=== PATIENT | male | born 1985 | race Caucasian/White ===

== ENCOUNTER 2021-06-18 15:48 | Outpatient (CLI) | payer MEDICARE, MEDICAID, SELFPAY ==
--- NOTE | 2021-06-18 16:09 | XR_ITS ---
WS: [id number] XR abdomen 1V* [id number] REASON FOR EXAM: PELVIC PAIN/ABDOMINAL PAIN, HX OF OBSTRUCTION FINDINGS: Peritoneal dialysis catheter overlying the mid abdomen with complex redundant coiling in the right lo wer quadrant. Moderately gas-distended loops of small bowel in the mid lower abdomen with mildly thickened fold pat tern. There is gas in the right and transverse colons. There is a lucency in the right upper quadrant between the liver and right kidney that appears artifa ctual. Potentially this could represent miniscule amount trapped free air related to peritoneal dialy sis. XR/XR abdomen 1V* [id number] IMPRESSION: Bowel gas pattern suggests partial small bowel obstruction.
== END 2021-06-18 15:49 | disposition home or self-care (01) ==
PROVIDERS: PCP Nurse Practitioner Family; Visit Provider Internal Medicine Nephrology
DX: R10.9 Unspecified abdominal pain (principal); R10.2 Pelvic and perineal pain
CPT/HCPCS: 74018

== ENCOUNTER 2022-09-10 16:11 | Emergency (ER) | payer MEDICARE, MEDICAID, SELFPAY ==
[2022-09-10] VITALS (7 sets, daily range): BP systolic 92–120; BP diastolic 62–76; PULSE 94–130; RESP 18; TEMP 37; O2SAT 91–96; BMI 18.1
--- NOTE | 2022-09-10 16:15 | ECG_ITS ---
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 Measurements Intervals [place] Rate: 128 P: 0 CO: 0 QRS: 57 QRSD: 86 T: 151 QT: 297 QTc: 434 Interpretive Statements ATRIAL FIBRILLATION WITH RAPID VENTRICULAR RESPONSE POSSIBLE RIGHT VENTRICULAR CONDUCTION DELAY [RSR (QR) IN V1/V2] ST DEVIATION AND MODERATE T-WAVE ABNORMALITY, CONSIDER LATERAL ISCHEMIA [-0.1+ mV T-WAVE IN I/aVL/V5/V6] No previous ECG available for comparison Electronically Signed On 09-10-2022 19:26:00 CDT by Zari Solis M.D. [email or web address]/store/NU/[id number] johnson
--- NOTE | 2022-09-10 16:25 | ED_ITS ---
HPI - Arrhythmia/Palpitations General: Chief Complaint: Arrhythmia/Palpitations Stated Complaint: afib rvr Time Seen by Provider: 09/10/22 16:13 History of Present Illness: Patient presents to the ER with tachycardia. Patient was finishing up dialysis and a dialysis nurse noted he had a fast heart rate. Approximate 130 bpm. Patient states he has went in A-fib or tachycardia several times in the past but usually resolves on its own. Otherwise patient has no complaints at this time. Patient did finish dialysis. Patient is not currently on any anticoagulation. Review of Systems General: Reports: 10 or more systems reviewed and unremarkable except in HPI and below PFSH ED PFSH: Medical History Atrial flutter Social History Smoking and tobacco status: never smoked Physical Exam Const: COMMON NORMALS: no acute distress, average body habitus, patient oriented x3, no limitations, healthy appearing, alert and well nourished HENMT: COMMON NORMALS: normocephalic, atraumatic, hearing grossly normal bilaterally, external ears normal, Normal external nose present and moist oral mucous membranes HEAD & SCALP: normocephalic and atraumatic NOSE: Normal external nose present EXTERNAL EAR: Yes external ears normal Eye: COMMON NORMALS: Equal, round and reactive pupils present, EOMs intact bilaterally, conjunctivae normal and no scleral icterus CONJUNCTIVA: Yes conjunctivae normal PUPIL: Yes Equal, round and reactive pupils present Neck/C-Spine: COMMON NORMALS: full ROM, no lymphadenopathy, supple, no meningeal signs, no JVD and Thyroid normal THYROID: Thyroid normal Chest: COMMONS NORMALS: normal inspection of the chest and normal palpation of entire chest wall Resp: COMMON NORMALS: normal respiratory effort, No retractions, No use of accessory muscles and clear to auscultation bilaterally AUSCULTATION: clear to auscultation bilaterally Cardio: COMMON NORMALS: no JVD, S1 normal heart sound present, S2 normal heart sound present, No gallops present (Cardio), No clicks present (Cardio) and No rub (Cardio); negative for regular rate (Tachycardia with irregularly irregular rhythm) and negative for No murmurs present (Cardio) (Grade 3/6 systolic ejection murmur.) RATE: abnormal rate (Tachycardia with irregularly irregular rhythm) HEART SOUNDS: S1 normal heart sound present and S2 normal heart sound present GI: COMMON NORMALS: Normal to inspection, nondistended, normoactive bowel sounds present, Soft to palpation, non-tender and No hepatosplenomegaly present PALPATION: Yes Soft to palpation and Yes No hepatosplenomegaly present : COMMON NORMALS: Yes no CVA tenderness BLADDER/KIDNEY EXAM: Yes no CVA tenderness Back/Pelvis: COMMON NORMALS: no CVA tenderness Neuro: COMMON NORMALS: patient oriented x3 SENSORIUM/ORIENTATION: Yes alert MENINGEAL SIGNS: Yes no meningeal signs Course Vital Signs: Vital signs: Vital Signs Temperature 98.6 F 09/10/22 16:12 Pulse Rate 99 09/10/22 18:24 Respiratory Rate 18 09/10/22 16:12 Blood Pressure 101/71 09/10/22 18:24 Pulse Oximetry 91 09/10/22 18:24 Oxygen Delivery Me thod Room Air 09/10/22 18:24 MDM - Arrhythmia/Palpitations Medical Decision Making Patient presents to the ER in A-fib with RVR with a heart rate about 130 beats a minute. Patient is from dialysis. Finished dialysis today. Patient is never had A-fib before. Lab work was obtained which was essentially benign for him Dr. Rader was consulted who said we can put him Eliquis 5 mg twice daily give him a dose of Cardizem long-acting 120 mg here today and have him follow-up with a motor scooter repairer. We will refer this to case management to get cardiology appointment. Differential Diagnosis Likely artial fibrillation; Unlikely palpitations, anxiety, sinus tachycardia, artial flutter, ventricular premature beats, supraventricular tachycardia, ventricular tachycardia or WPW Medical Records I reviewed the patient's medical records. Lab Data I reviewed the patient's lab results. 09/10/22 16:25 09/10/22 16:25 Laboratory Results WBC 5.8 10^3/uL (4.0-10.0) 09/10/22 16: RBC 3.38 10^6/uL (4.1-5.3) L 09/10/22 16:25 Hgb 10.8 g/dL (11.7-16.6) L 09/10/22 16:25 Hct 33.2 % (42.0-52.0) L 09/10/22 16:25 MCV 98.2 fl (80-94) H 09/10/22 16:25 MCH 32.0 pg (28.0-34.0) 09/10/22 16:25 MCHC 32.5 g/dL (30.0-36.0) 09/10/22 16:25 RDW 14.2 % (12.1-15.1) 09/10/22 16:25 Plt Count 437 10^3/cmm (130-400) H 09/10/22 16:25 MPV 9.1 fL (7.4-10.4) 09/10/22 16:25 Neut % (Auto) 73.0 % 09/10/22 16:25 Lymph % (Auto) 18.3 % 09/10/22 16:25 [place] % (Auto) 7.2 % 09/10/22 16:25 Eos % (Auto) 0.7 % 09/10/22 16:25 Baso % (Auto) 0.5 % 09/10/22 16:25 Neut # (Auto) 4.23 10^3/uL (1.8-7.7) 09/10/22 16:25 Lymph # (Auto) 1.1 10^3/uL (0.8-4.8) 09/10/22 16:25 [place] # (Auto) 0.4 10^3/uL (0.2-0.9) 09/10/22 16:25 Eos # (Auto) 0.0 10^3/uL (0.0-0.8) 09/10/22 16:25 Baso # (Auto) 0.0 10^3/uL (0.0-0.1) 09/10/22 16:25 Nucleated RBC % (auto) 0 % 09/10/22 16:25 Nucleated RBCs # 0.0 /100WBC 09/10/22 16:25 Sodium 138 mmol/L (136-145) 09/10/22 16:25 Potassium 4.1 mmol/L (3.5-5.1) 09/10/22 16:25 Chloride 90 mmol/L (98-107) L 09/10/22 16:25 Carbon Dioxide 29 mmol/L (22-29) 09/10/22 16:25 Anion Gap 23.1 (5-19) H 09/10/22 16:25 BUN 20 mg/dL (6-20) 09/10/22 16:25 Creatinine 5.7 mg/dL (0.7-1.2) H* 09/10/22 16:25 GFR Calculation 11.4 mL/min (90-130) L 09/10/22 16:25 Glucose 100 mg/dL (65-115) 09/10/22 16:25 Calculated Osmolality 289 mOsm/kg (285-295) 09/10/22 16:25 Calcium 10.2 mg/dL (8.5-10.5) 09/10/22 16:25 Phosphorus 5.4 mg/dL (2.5-4.5) H 09/10/22 16:25 Magnesium 2.2 mg/dL (1.7-2.3) 09/10/22 16:25 Total Bilirubin 0.3 mg/dL (0.15-1.2) 09/10/22 16:25 AST 19 U/L (0-40) 09/10/22 16:25 ALT 9 U/L (0-41) 09/10/22 16:25 Alkaline Phosphatase 120 U/L (40-130) 09/10/22 16:25 Total Protein 8.2 g/dL (6.6-8.7) 09/10/22 16:25 Albumin 3.8 g/dL (3.5-5.2) 09/10/22 16:25 Globulin 4.4 g/dL (1.3-4.6) 09/10/22 16:25 EKG Data EKG 1: I personally reviewed and interpreted this EKG as follows: EKG interpretation date: 09/10/22 EKG interpretation time: 16:15 Prior EKG tracings: not available for review Interpretation: EKG showed ventricular rate 120 beats a minute, QRS duration 86, QTc of 373, A- fib with RVR, possible right ventricular conduction delay, ST deviation moderate T wave abnormality, negative T waves in 1 aVL V5 V6 Discharge Plan Discharge Patient Disposition: Home Clinical Impression: Atrial fibrillation with rapid ventricular response, ESRD (end stage renal disease) on dialysis Condition: Stable Prescriptions: New Eliquis 5 mg tablet 5 mg PO Q12H Qty: 60 0RF Cardizem CD 120 mg capsule,extended release 24hr 120 mg PO DAILY Qty: 30 0RF No Action lanthanum 1,000 mg tablet,chewable 1,500 mg PO TID Rx Instructions: administer with food; chew thoroughly before swallowing metoclopramide HCl [Reglan] 5 mg tablet 5 mg PO .HS RenaPlex-D 800 mcg-12.5 mg -2,000 unit tablet 1 tab PO DAILY cinacalcet [Sensipar] 60 mg tablet 60 mg PO .HS metoprolol succinate 25 mg tablet extended release 24 hr 25 mg PO DAILY Qty: 90 3RF temazepam 15 mg capsule PO Combivent Respimat 20-100 mcg/actuation mist inhalation methylprednisolone 4 mg tablets,dose pack PO temazepam 30 mg capsule 30 mg PO ONCE Discharge Orders: Discharge ED (Routine); Ordered 09/10/22 Ordered By: Oscar Kirk Referrals: Radha Hadley FNP [Primary Care Provider] - 1 week Patient Instructions: A-fib (Atrial Fibrillation) (ED) Activity Restrictions/Additional Instructions: Please take your medicine as directed. You have been referred to case management for referral to cardiology secondary to your new onset atrial fibrillation. If they have not called you within 2-3 business days please call them. If your atrial fibrillation starts again and is you are unable to get it stopped feel free to come to the ER for further evaluation and treatment. Coding Level of Care Code ED Foreign Language Professor for Roz Oneill
[2022-09-10] MEDS: sodium chloride 0.9% 1,000 ML 999 ML IV (16:30)
[2022-09-10 16:31] LABS: Basophils % 0.5 %; Eosinophils % 0.7 %; Hematocrit 33.2 % (42.0-52.0); Hemoglobin 10.8 g/dL (11.7-16.6); Lymphocytes # 1.1 10^3/uL (0.8-4.8); Lymphocytes % 18.3 %; Mean Corpuscular HGB Conc 32.5 g/dL (30.0-36.0); Mean Corpuscular Volume 98.2 fl (80-94); Mean Platelet Volume 9.1 fL (7.4-10.4); Monocytes # 0.4 10^3/uL (0.2-0.9); Monocytes % 7.2 %; Neutrophils # 4.23 10^3/uL (1.8-7.7); Nucleated Red Blood Cells % 0 %; Platelet Count 437 10^3/cmm (130-400); Red Blood Count 3.38 10^6/uL (4.1-5.3); Red Cell Distribution Width 14.2 % (12.1-15.1); White Blood Count 5.8 10^3/uL (4.0-10.0)
[2022-09-10 16:51] LABS: Alanine Aminotransferase 9 U/L (0-41); Albumin Level 3.8 g/dL (3.5-5.2); Alkaline Phosphatase 120 U/L (40-130); Anion Gap 23.1 (5-19); Aspartate Amino Transferase 19 U/L (0-40); Blood Urea Nitrogen 20 mg/dL (6-20); Calcium 10.2 mg/dL (8.5-10.5); Carbon Dioxide 29 mmol/L (22-29); Chloride 90 mmol/L (98-107); Globulin 4.4 g/dL (1.3-4.6); Glomerular Filtration Rate 11.4 mL/min (90-130); Glucose 100 mg/dL (65-115); Magnesium 2.2 mg/dL (1.7-2.3); Osmolality Calculated 289 mOsm/kg (285-295); Phosphorus 5.4 mg/dL (2.5-4.5); Potassium 4.1 mmol/L (3.5-5.1); Sodium 138 mmol/L (136-145); Total Bilirubin 0.3 mg/dL (0.15-1.2); Total Protein 8.2 g/dL (6.6-8.7)
[2022-09-10] MEDS: dilTIAZem 5 mg/mL SDV 5 mL 10 MG IVP ×2 (17:00→17:51)
[2022-09-10] MEDS: dilTIAZem 100 MG in sodium chloride 0.9% (add-van) 100 ML IV (17:50)
--- NOTE | 2022-09-10 17:56 | PC.NURSE ---
Physician verbal orders to titrate cardizem drip for heart rate to stay 100BPM or less.
[2022-09-10] MEDS: dilTIAZem ER (24HR) 120 mg Capsule PO (18:22)
--- NOTE | 2022-09-10 18:23 | PC.NURSE ---
Cardizem titrated down to 2.5mg/hr per Dr. Kirk verbal orders.
--- NOTE | 2022-09-10 18:44 | PC.NURSE ---
Pt placed on 3L NC due to oxygen dropping to 87% on room air.
--- NOTE | 2022-09-10 19:08 | PC.NURSE ---
Cardizem stopped per Dr. Kirk verbal orders.
--- NOTE | 2022-09-11 08:09 | PC.SOCIAL ---
Addendum entered by Leticia Christensen 10/22/22 12:04: Patient did not attend this appointment Addendum entered by Leticia Christensen 09/23/22 12:23: Patient has a follow up appointment scheduled for Thursday, October 20, 2022 at 2:[address] Gaston at [facility]. Original Note: Cardiology Referral Referral sent at this time. Clinic will contact patient with appt date/time.
== END 2022-09-10 19:55 | disposition home or self-care (01) ==
PROVIDERS: Emergency Provider Emergency Medicine; PCP Nurse Practitioner
DX: I48.20 Chronic atrial fibrillation, unspecified (principal); Z79.01 Long term (current) use of anticoagulants; N18.6 End stage renal disease; Z99.2 Dependence on renal dialysis; Z79.899 Other long term (current) drug therapy
CPT/HCPCS: 36415; 80053; 83735; 84100; 85025; 93005; 96365; 96375; 99285; J3490; J7030

== ENCOUNTER 2022-10-22 18:40 | Emergency (ER) | payer MEDICARE, MEDICAID, SELFPAY ==
--- NOTE | 2022-10-22 18:44 | CTR_ITS ---
PROCEDURE INFORMATION: Exam: CT Abdomen And Pelvis Without Contrast Exam date and time: 10/22/2022 7:16 PM Age: 37 years old Clinical indication: Abdominal pain; Additional info: Abd pain TECHNIQUE: Imaging protocol: Computed tomography of the abdomen and pelvis without contrast. Radiation optimization: All CT scans at this facility use at least one of these dose optimization techniques: automated exposure control; mA and/or kV adjustment per patient size (includes targeted exams where dose is matched to clinical indication); or iterative reconstruction. REPORTING DATA: Count of CT and Cardiac NM exams in prior 12 months: This patient has received 0 known CTs and 0 known cardiac nuclear medicine studies in the 12 months prior to the current study. COMPARISON: CR XR abdomen 1V* [id number] 06/18/2021 4:14 PM RADIATION DOSE METRICS: Total DLP (mGy-cm): 337.33 FINDINGS: Lungs: Bibasilar bronchiectasis. Left lower lobe atelectasis versus minimal infiltrate. Liver: Moderate nonspecific fluid about the caudal tip of the liver. Gallbladder and bile ducts: Normal. No calcified stones. No ductal dilation. Pancreas: Normal. No ductal dilation. Spleen: Normal. No splenomegaly. Adrenal glands: Normal. No mass. Kidneys and ureters: Right kidney punctate nonobstructing calyceal stone. Mild perinephric edema bilaterally likely reflecting renal insufficiency. Left kidney cyst, negative for follow-up advised. Stomach and bowel: Diffuse portal venous air which can be a finding of bowel ischemia along with a 9.2 cm area of collection of air and soft tissue density in the mid pelvis which appears to reflect several loops of bowel with pneumatosis intestinalis, concerning for an area of bowel ischemia, please correlate clinically, a CT with IV intravenous and enteric contrast could further evaluate this finding in the pelvis as clinically indicated. Appendix: No evidence of appendicitis. Intraperitoneal space: Unremarkable. No free air. No significant fluid collection. Vasculature: See Stomach and bowel finding. Lymph nodes: Unremarkable. No enlarged lymph nodes. Urinary bladder: Unremarkable as visualized. Reproductive: Unremarkable as visualized. Bones/joints: Unremarkable. No acute fracture. Soft tissues: Unremarkable. CT/CT abdomen pelvis wo con [id number] IMPRESSION: 1. Diffuse portal venous air which can be a finding of bowel ischemia along with a 9.2 cm area of collection of air and soft tissue density in the mid pelvis which appears to reflect several loops of bowel with pneumatosis intestinalis, concerning for an area of bowel ischemia, please correlate clinically, a CT with IV intravenous and enteric contrast could further evaluate this finding in the pelvis as clinically indicated. 2. Moderate nonspecific fluid about the caudal tip of the liver. 3. Right kidney punctate nonobstructing calyceal stone. 4. Mild perinephric edema bilaterally likely reflecting renal insufficiency. 5. Left kidney cyst, negative for follow-up advised. 6. Bibasilar bronchiectasis. 7. Left lower lobe atelectasis versus minimal infiltrate.
--- NOTE | 2022-10-22 18:44 | ECG_ITS ---
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 Measurements Intervals [place] Rate: 86 P: 55 AL: 160 QRS: 12 QRSD: 93 T: 234 QT: 396 QTc: 476 Interpretive Statements SINUS RHYTHM POSSIBLE LEFT ATRIAL ENLARGEMENT [-0.1mV P-WAVE IN V1/V2] ST DEVIATION AND MARKED T-WAVE ABNORMALITY, CONSIDER ANTEROLATERAL ISCHEMIA [-0.5+ mV T-WAVE IN I/aVL/V3-V6] ST DEVIATION AND MODERATE T-WAVE ABNORMALITY, CONSIDER INFERIOR ISCHEMIA [-0.1+ mV T-WAVE IN II/aVF] Compared to ECG 09/10/2022 16:15:34 Atrial fibrillation no longer present T-wave abnormality still present Possible ischemia still present Electronically Signed On 10-23-2022 9:26:06 CDT by Kiet Gaston M.D. [email or web address]/[id number]
[2022-10-22 18:45] VITALS: BP 151/101; PULSE 83; RESP 16; O2SAT 98; BMI 19.3
--- NOTE | 2022-10-22 18:52 | USR_ITS ---
PROCEDURE INFORMATION: Exam: US Abdomen, Limited; Right Upper Quadrant Exam date and time: 10/22/2022 7:20 PM Age: 37 years old Clinical indication: Abdominal pain; Other: Ruq; Additional info: Ruq pain TECHNIQUE: Imaging protocol: Real time ultrasound of the abdomen with image documentation. Limited exam focused on the right upper quadrant. COMPARISON: CT abdomen pelvis wo con [id number] 10/22/2022 7:16 PM FINDINGS: Liver: Normal. No masses. Gallbladder: Normal. No gallstones. There is no gallbladder wall thickening. Biliary ducts: Normal. No stones. No dilation. Pancreas: Visualized pancreas is unremarkable. Right kidney: Normal. No mass. No hydronephrosis. Portal venous: Diffuse portal venous gas. Main portal vein demonstrates normal hepatopetal color blood flow. Hepatic veins: Main hepatic vein color blood flow is not demonstrated. Intraperitoneal space: Small amount of perihepatic fluid. US/US gall bladder [id number] IMPRESSION: 1. Negative for cholelithiasis or cholecystitis 2. Diffuse portal venous gas. 3. Small amount of perihepatic fluid. 4. Main hepatic vein color blood flow is not demonstrated. 5. Main portal vein demonstrates normal hepatopetal color blood flow.
--- NOTE | 2022-10-22 18:54 | ED_ITS ---
HPI - Abdominal Pain General: Chief Complaint: Abdominal Pain Stated Complaint: abd pain Time Seen by Provider: 10/22/22 18:41 Source: patient Mode of arrival: ambulatory Limitations: no limitations History of Present Illness: 37-year-old male has a history of end-stage renal disease he is on dialysis he states he is receiving dialysis today did get his full dialysis states that this morning that he started having severe epigastric abdominal pain. States the pain is sharp in nature with no radiation he had no history of any abdominal surgeries denies vomiting has had nausea. He rates his pain a 6 out of 10 currently did receive fentanyl in route Associated Symptoms: Denies chills, diarrhea, dysuria, fever(s), nausea and vomiting Review of Systems Const: Denies: fever(s), chills, body aches or change in appetite ENMT: Denies: throat pain or dental pain Card: Denies: chest pain Resp: Denies: dyspnea GI: Reports: abdominal pain; Denies: nausea, vomiting or diarrhea : Denies: dysuria Musc: Denies: neck pain or back pain Skin/Breast: Denies: rash Neuro: Denies: headache(s) PFSH ED PFSH: Medical History Atrial flutter Social History Smoking and tobacco status: never smoked Physical Exam Const: COMMON NORMALS: patient oriented x3 GENERAL APPEARANCE: in distress HENMT: COMMON NORMALS: normocephalic and atraumatic HEAD & SCALP: normocephalic and atraumatic Neck/C-Spine: COMMON NORMALS: full ROM and supple Chest: COMMONS NORMALS: normal inspection of the chest and normal palpation of entire chest wall Resp: COMMON NORMALS: normal respiratory effort, No retractions, No use of accessory muscles and clear to auscultation bilaterally AUSCULTATION: clear to auscultation bilaterally Cardio: COMMON NORMALS: regular rate, regular rhythm and No murmurs present (Cardio) RATE: regular rate RHYTHM: regular rhythm GI: COMMON NORMALS: Normal to inspection, nondistended, normoactive bowel sounds present and no masses PALPATION: Yes Tenderness to palpation present (GI) (epigastric) Extremity: COMMON NORMALS: normal to inspection and full ROM Neuro: COMMON NORMALS: patient oriented x3, moves all extremities and no focal motor deficits Psych: COMMON NORMALS: mental status grossly normal, Normal thought process present and cooperative THOUGHT PROCESS: Normal thought process present Skin: COMMON NORMALS: no rashes or lesions noted and no wounds GENERAL SKIN EXAM: no rashes or lesions noted Course Reevaluation(s): Reevaluation #1: Patient has findings of ischemic bowel on his CT I spoke to Dr. Escamilla immediately after the CT findings he did felt with his dialysis that he needed a higher level of care spoke to patient he will be try to transfer to [place] first as he is from there did speak to surgeon at [facility] [place] who refused I spoke to [facility] talk to Dr. Davis who is requesting to talk to Dr. Escamilla before excepting up spoke to Dr. Escamilla who is going to contact Dr. Davis at this time. Time: 21:23 Vital Signs: Vital signs: Vital Signs Temperature 97.6 F 10/22/22 21:01 Pulse Rate 82 10/22/22 21:17 Respiratory Rate 16 10/22/22 21:17 Blood Pressure 159/98 10/22/22 21:17 Pulse Oximetry 98 10/22/22 21:17 Oxygen Delivery Me thod Room Air 10/22/22 18:45 MDM - Abdominal Pain Medical Decision Making Patient presents here with ischemic bowel he started on IV antibiotics I spoke to Dr. Escamilla here felt patient need to be at a tertiary center spoke to Dr. Davis at [facility] Dr. Escamilla spoke to him also they are excepting there for high-level care will transfer at this time. Medical Records I reviewed the patient's medical records. Lab Data I reviewed the patient's lab results. 10/22/22 19:00 10/22/22 19:00 Labs/Radiology: Radiology Impressions Abdomen/Pelvis CT 10/22/22 18:44 IMPRESSION: 1. Diffuse portal venous air which can be a finding of bowel ischemia along with a 9.2 cm area of collection of air and soft tissue density in the mid pelvis which appears to reflect several loops of bowel with pneumatosis intestinalis, concerning for an area of bowel ischemia, please correlate clinically, a CT with IV intravenous and enteric contrast could further evaluate this finding in the pelvis as clinically indicated. 2. Moderate nonspecific fluid about the caudal tip of the liver. 3. Right kidney punctate nonobstructing calyceal stone. 4. Mild perinephric edema bilaterally likely reflecting renal insufficiency. 5. Left kidney cyst, negative for follow-up advised. 6. Bibasilar bronchiectasis. 7. Left lower lobe atelectasis versus minimal infiltrate. ADDENDUM: 10/22/221941 THIS REPORT CONTAINS FINDINGS THAT MAY BE CRITICAL TO PATIENT CARE. The findings were verbally communicated via telephone conference with LIDA PALMA at 7:41 PM CDT on 10/22/2022. The findings were acknowledged and understood. Gallbladder Ultrasound 10/22/22 18:52 IMPRESSION: 1. Negative for cholelithiasis or cholecystitis 2. Diffuse portal venous gas. 3. Small amount of perihepatic fluid. 4. Main hepatic vein color blood flow is not demonstrated. 5. Main portal vein demonstrates normal hepatopetal color blood flow. Laboratory Results WBC 13.2 10^3/uL (4.0-10.0) H 10/22/22 19:00 RBC 4.14 10^6/uL (4.1-5.3) 10/22/22 19:00 Hgb 13.1 g/dL (11.7-16.6) 10/22/22 19:00 Hct 40.0 % (42.0-52.0) L 10/22/22 19:00 MCV 96.6 fl (80-94) H 10/22/22 19:00 MCH 31.6 pg (28.0-34.0) 10/22/22 19: MCHC 32.8 g/dL (30.0-36.0) 10/22/22 19: RDW 15.6 % (12.1-15.1) H 10/22/22 19:00 Plt Count 304 10^3/cmm (130-400) 10/22/22 19: MPV 9.0 fL (7.4-10.4) 10/22/22 19:00 Neut % (Auto) 88.3 % 10/22/22 19: Lymph % (Auto) 4.6 % 10/22/22 19: [place] % (Auto) 5.8 % 10/22/22 19: Eos % (Auto) 0.4 % 10/22/22 19: Baso % (Auto) 0.4 % 10/22/22 19:00 Neut # (Auto) 11.65 10^3/uL (1.8-7.7) H 10/22/22 19:00 Lymph # (Auto) 0.6 10^3/uL (0.8-4.8) L 10/22/22 19:00 [place] # (Auto) 0.8 10^3/uL (0.2-0.9) 10/22/22 19:00 Eos # (Auto) 0.1 10^3/uL (0.0-0.8) 10/22/22 19:00 Baso # (Auto) 0.1 10^3/uL (0.0-0.1) 10/22/22 19:00 Nucleated RBC % (auto) 0 % 10/22/22 19:00 Nucleated RBCs # 0.0 /100WBC 10/22/22 19:00 Sodium 138 mmol/L (136-145) 10/22/22 19:00 Potassium 4.1 mmol/L (3.5-5.1) 10/22/22 19:00 Chloride 91 mmol/L (98-107) L 10/22/22 19:00 Carbon Dioxide 28 mmol/L (22-29) 10/22/22 19:00 Anion Gap 23.1 (5-19) H 10/22/22 19:00 BUN 22 mg/dL (6-20) H 10/22/22 19:00 Creatinine 4.6 mg/dL (0.7-1.2) H 10/22/22 19:00 GFR Calculation 14.6 mL/min (90-130) L 10/22/22 19:00 Glucose 135 mg/dL (65-115) H 10/22/22 19:00 Calculated Osmolality 291 mOsm/kg (285-295) 10/22/22 19:00 Lactic Acid 2.9 mmol/L (0.5-2.2) H 10/22/22 19:00 Calcium 9.7 mg/dL (8.5-10.5) 10/22/22 19:00 Total Bilirubin 0.5 mg/dL (0.15-1.2) 10/22/22 19:00 AST 16 U/L (0-40) 10/22/22 19:00 ALT 12 U/L (0-41) 10/22/22 19:00 Alkaline Phosphatase 143 U/L (40-130) H 10/22/22 19:00 Troponin T Baseline 92 ng/L (0-15) H 10/22/22 19:00 Total Protein 8.0 g/dL (6.6-8.7) 10/22/22 19:00 Albumin 4.7 g/dL (3.5-5.2) 10/22/22 19:00 Globulin 3.3 g/dL (1.3-4.6) 10/22/22 19:00 Lipase 32 U/L (13-60) 10/22/22 19:00 EKG Data EKG 1: I personally reviewed and interpreted this EKG as follows: EKG interpretation date: 10/22/22 EKG interpretation time: 18:50 Interpretation: nsr hr [address] elevation qrs 93 qtc 440 Critical Care Time Critical Care Time: Critical Care Time: Yes Total Critical Care Time: 50 Attestation: The high probability of a clinically significant, sudden or life threatening deterioration of the patient's gi system(s) required my full and direct attention, intervention and personal management. The critical care time is as shown. This time is in addition to time spent performing any reported procedures but includes the following: [x] Data and vital sign review and interpretation [x] Patient assessment, examination and intervention [x] Documentation [x] Medication orders and management Discharge Plan Discharge Patient Disposition: Admitted As Inpatient Clinical Impression: Ischemia, bowel Condition: Stable Prescriptions: No Action lanthanum 1,000 mg tablet,chewable 1,500 mg PO TID Rx Instructions: administer with food; chew thoroughly before swallowing metoclopramide HCl [Reglan] 5 mg tablet 5 mg PO .HS RenaPlex-D 800 mcg-12.5 mg -2,000 unit tablet 1 tab PO DAILY cinacalcet [Sensipar] 60 mg tablet 60 mg PO .HS metoprolol succinate 25 mg tablet extended release 24 hr 25 mg PO DAILY Qty: 90 3RF temazepam 15 mg capsule PO Combivent Respimat 20-100 mcg/actuation mist inhalation methylprednisolone 4 mg tablets,dose pack PO temazepam 30 mg capsule 30 mg PO ONCE Eliquis 5 mg tablet 5 mg PO Q12H Qty: 60 0RF Cardizem CD 120 mg capsule,extended release 24hr 120 mg PO DAILY Qty: 30 0RF Referrals: Radha Hadley FNP [Primary Care Provider] - Coding Level of Care Code ED Finance Broker for Roz Oneill
[2022-10-22] MEDS: ondansetron 2 mg/ML SDV 2 mL 4 MG IVP (19:09)
[2022-10-22] MEDS: HYDROmorphone 1 mg/mL INJ 1 mL IVP ×2 (19:09→21:14)
[2022-10-22 19:11] LABS: Basophils # 0.1 10^3/uL (0.0-0.1); Basophils % 0.4 %; Eosinophils # 0.1 10^3/uL (0.0-0.8); Eosinophils % 0.4 %; Hemoglobin 13.1 g/dL (11.7-16.6); Lymphocytes # 0.6 10^3/uL (0.8-4.8); Lymphocytes % 4.6 %; Mean Corpuscular HGB Conc 32.8 g/dL (30.0-36.0); Mean Corpuscular Hemoglobin 31.6 pg (28.0-34.0); Mean Corpuscular Volume 96.6 fl (80-94); Monocytes # 0.8 10^3/uL (0.2-0.9); Monocytes % 5.8 %; Neutrophils # 11.65 10^3/uL (1.8-7.7); Neutrophils % 88.3 %; Nucleated Red Blood Cells % 0 %; Platelet Count 304 10^3/cmm (130-400); Red Blood Count 4.14 10^6/uL (4.1-5.3); Red Cell Distribution Width 15.6 % (12.1-15.1); White Blood Count 13.2 10^3/uL (4.0-10.0)
[2022-10-22 19:27] LABS: Alanine Aminotransferase 12 U/L (0-41); Albumin Level 4.7 g/dL (3.5-5.2); Alkaline Phosphatase 143 U/L (40-130); Anion Gap 23.1 (5-19); Aspartate Amino Transferase 16 U/L (0-40); Blood Urea Nitrogen 22 mg/dL (6-20); Calcium 9.7 mg/dL (8.5-10.5); Carbon Dioxide 28 mmol/L (22-29); Chloride 91 mmol/L (98-107); Globulin 3.3 g/dL (1.3-4.6); Glomerular Filtration Rate 14.6 mL/min (90-130); Glucose 135 mg/dL (65-115); Lipase 32 U/L (13-60); Osmolality Calculated 291 mOsm/kg (285-295); Potassium 4.1 mmol/L (3.5-5.1); Sodium 138 mmol/L (136-145); Total Bilirubin 0.5 mg/dL (0.15-1.2)
[2022-10-22 19:32] LABS: Troponin(5th) Baseline 92 ng/L (0-15)
[2022-10-22 20:02] LABS: Lactic Sepsis W/Reflex 2.9 mmol/L (0.5-2.2)
--- NOTE | 2022-10-22 20:34 | ECG_ITS ---
[facility] Test Date: 2022-10-22 Pat Name: Quentin Avina Department: Room: Gender: Male External Relations Manager: : 1985 Requested By: Candi Dickens Order Number: [id number] Vee MD: Kiet Gaston M.D. Measurements Intervals [place] Rate: 81 P: 59 [place]: 161 QRS: 20 QRSD: 93 T: 239 QT: 403 QTc: 470 Interpretive Statements SINUS RHYTHM LEFT ATRIAL ENLARGEMENT [-0.15mV P-WAVE IN V1/V2] ST DEVIATION AND MARKED T-WAVE ABNORMALITY, CONSIDER LATERAL ISCHEMIA [-0.5+ mV T-WAVE IN I/aVL/V5/V6] ST DEVIATION AND MODERATE T-WAVE ABNORMALITY, CONSIDER INFERIOR ISCHEMIA [-0.1+ mV T-WAVE IN II/aVF] Compared to ECG 10/22/2022 18:50:45 No significant changes Electronically Signed On 10-23-2022 9:29:16 CDT by Kiet Gaston M.D. [id number]
[2022-10-22 21:01] VITALS: TEMP 36.4
[2022-10-22 21:14] VITALS: RESP 16
[2022-10-22] MEDS: metroNIDAZOLE IV 500 MG/100 ML PREMIX 100 MG IV (21:14)
[2022-10-22 21:17] VITALS: BP 159/98; PULSE 82; RESP 16; O2SAT 98
[2022-10-22 21:25] LABS: Reflex Lactate Order REFLEX LACTIC ORDERD
[2022-10-22 21:54] LABS: Troponin 5 2HR 82.15 ng/L (0-15)
[2022-10-22 21:55] LABS: Lactic Acid level (Lactate) 2.5 mmol/L (0.5-2.2)
== END 2022-10-22 22:32 | disposition admitted as inpatient to this hospital (09) ==
PROVIDERS: Emergency Provider Emergency Medicine; PCP Nurse Practitioner
DX: K55.9 Vascular disorder of intestine, unspecified (principal)
CPT/HCPCS: 36415; 74176; 76705; 80053; 83605; 83690; 84484; 85025; 87040; 93005; 96374; 96375; 96376; 99285; J1170; J2405; J3490

== ENCOUNTER 2023-11-15 03:07 | Emergency (ER) | payer MEDICARE, MEDICAID, SELFPAY ==
[2023-11-15] VITALS (13 sets, daily range): BP systolic 75–118; BP diastolic 30–50; PULSE 0–85; RESP 16–29; TEMP 36.7–36.8; O2SAT 99–100; BMI 19.5
--- NOTE | 2023-11-15 03:20 | CTR_ITS ---
PROCEDURE INFORMATION: Exam: CT Abdomen And Pelvis With Contrast Exam date and time: 11/15/2023 4:09 AM Age: 38 years old Clinical indication: Other: Acute anemia/rectal bleeding; Prior surgery; Surgery date: 6+ months; Surgery type: Bowel resection; Patient HX: PT C/O profuse rectal bleeding with actue anema. Hgb 5.80 and hct 19.2. History of ischemic bowel and esrd. ; Additional info: Abd pain, rectal bleeding TECHNIQUE: Imaging protocol: Computed tomography of the abdomen and pelvis with contrast. Radiation optimization: All CT scans at this facility use at least one of these dose optimization techniques: automated exposure control; mA and/or kV adjustment per patient size (includes targeted exams where dose is matched to clinical indication); or iterative reconstruction. Contrast material: OMNI 350; Contrast volume: 100 ml; Contrast route: INTRAVENOUS (IV); COMPARISON: CT abdomen pelvis wo con [id number] 10/22/2022 7:16 PM RADIATION DOSE METRICS: Total DLP (mGy-cm): 365.54 FINDINGS: Lungs: Stable lower lobe bronchiectasis. Liver: There is nonspecific hepatomegaly. Gallbladder and biliary ducts: No wall thickening, pericholecystic fluid or stones. Pancreas: Normal. No ductal dilation. Spleen: Normal. No splenomegaly. Adrenal glands: Normal. No mass. Kidneys and ureters: There is moderate to severe bilateral renal atrophy. Innumerable bilateral renal cysts, largest is 14 mm. Stomach and bowel: There has been a right hemicolectomy. Appendix: Appendix has been removed. Intraperitoneal space: There is a moderate amount of nonspecific free fluid in the abdomen. Vasculature: Unremarkable. No abdominal aortic aneurysm. Lymph nodes: Stable, mildly enlarged retroperitoneal lymph nodes. Urinary bladder: Unremarkable as visualized. Reproductive: Unremarkable as visualized. Bones/joints: Unremarkable. No acute fracture. Soft tissues: Stable sebaceous cyst in the right buttocks. Other findings: No contrast extravasation to indicate active hemorrhage. CT/CT abdomen pelvis w con* [id number] IMPRESSION: 1. Innumerable bilateral renal cysts, largest is 14 mm. 2. No contrast extravasation to indicate active hemorrhage. 3. There is a moderate amount of nonspecific free fluid in the abdomen. 4. Stable lower lobe bronchiectasis. 5. There is nonspecific hepatomegaly. COMMENTS: Consistent with the [employer]'s Incidental Findings Committee white paper (J Am Kayode Radiol 2018): Any incidental renal lesion less than 1 cm or classified as too small to characterize, or any incidental cystic renal lesion characterized as simple-appearing, is likely benign. No follow-up imaging is recommended for these lesions per consensus recommendations based on imaging criteria.
[2023-11-15 03:32] LABS: Basophils # 0.1 10^3/uL (0.0-0.1); Basophils % 0.9 %; Eosinophils % 7.4 %; Lymphocytes # 1.8 10^3/uL (0.8-4.8); Lymphocytes % 13.3 %; Mean Corpuscular HGB Conc 30.2 g/dL (30-55); Mean Corpuscular Hemoglobin 33.5 pg (27-33); Mean Platelet Volume 9.3 fL (7.4-10.4); Monocytes # 1.2 10^3/uL (0.2-0.9); Monocytes % 9.1 %; Neutrophils # 9.26 10^3/uL (1.8-7.7); Neutrophils % 68.8 %; Nucleated Red Blood Cells % 0 %; Platelet Count 412 10^3/cmm (157-399); Red Blood Count 1.73 10^6/uL (3.85-5.65); Red Cell Distribution Width 17.4 % (12.1-15.1); White Blood Count 13.47 10^3/uL (3.29-11.43)
[2023-11-15 03:33] LABS: Hematocrit 19.2 % (37-53)
--- NOTE | 2023-11-15 03:35 | ECG_ITS ---
[facility] Test Date: 2023-11-15 Pat Name: Quentin Avina Department: Room: Gender: Male [employer]: : 1985 Requested By: Joe Zavala Order Number: [id number] Vee MD: Kiet Gaston M.D. Measurements Intervals [place] Rate: 81 P: 58 [place]: 163 QRS: 53 QRSD: 92 T: 240 QT: 405 QTc: 471 Interpretive Statements SINUS RHYTHM POSSIBLE RIGHT VENTRICULAR CONDUCTION DELAY [RSR (QR) IN V1/V2] ST DEVIATION AND MODERATE T-WAVE ABNORMALITY, CONSIDER ANTEROLATERAL ISCHEMIA [-0.1+ mV T-WAVE IN V3-V6] ST DEVIATION AND MODERATE T-WAVE ABNORMALITY, CONSIDER INFERIOR ISCHEMIA [-0.1+ mV T-WAVE IN II/aVF] Compared to ECG 10/22/2022 20:34:30 Atrial abnormality no longer present T-wave abnormality still present Possible ischemia still present Electronically Signed On 11-15-2023 11:10:29 CDT by Kiet Gaston M.D. [id number]
[2023-11-15 03:37] LABS: INR 1.27 (0.8-1.2)
[2023-11-15 03:53] LABS: Alanine Aminotransferase 7 U/L (0-41); Alkaline Phosphatase 127 U/L (40-130); Aspartate Amino Transferase 34 U/L (0-40); Blood Urea Nitrogen 29 mg/dL (6-20); C Reactive Protein 14.4 mg/L (0.0-4.9); Calcium 7.8 mg/dL (8.5-10.5); Carbon Dioxide 29 mmol/L (22-29); Creatinine Clr Calc Pharmacy 11.1168; Globulin 3.3 g/dL (1.3-4.6); Glomerular Filtration Rate 7.6 mL/min (90-130); Glucose 93 mg/dL (65-115); Lipase 112 U/L (13-60); Total Bilirubin 1.7 mg/dL (0.15-1.2); Total Protein 6.3 g/dL (6.6-8.7)
[2023-11-15] MEDS: piperacillin-tazobactam 3.375 GM in sodium chloride 0.9% (plus) 50 ML IV (04:00)
--- NOTE | 2023-11-15 04:01 | ED_ITS ---
HPI - GI Bleed 2 General: Chief complaint: GI Bleed Stated complaint: Rectal Bleeding Time Seen by Provider: 11/15/23 03:20 History of Present Illness: 38-year-old male patient with a history of end-stage renal disease. He is on dialysis. He last had dialysis on Wednesday. He also has a history of bowel ischemia requiring surgery last year he says. He had a brief history of atrial fibrillation evidently, but is not on anticoagulation currently. Who presents with rectal bleeding. He states that started yesterday, and worsened last night. This past quite a bit of dark blood, with clots from the rectum. He has some abdominal pain. No vomiting. He states that his blood pressure always runs low, but he is feeling weak. Related Data Home Medications Medication Instructions Recorded Confirmed cinacalcet 60 mg tablet (Sensipar) 60 mg PO .HS 02/26/20 10/27/21 lanthanum 1,000 mg chewable tablet 1,500 mg PO TID 02/26/20 10/27/21 metoclopramide HCl 5 mg tablet 5 mg PO .HS 02/26/20 10/27/21 (Reglan) vit B,C-folic ac 800 mcg-zinc 12.5 1 tab PO DAILY 02/26/20 10/27/21 mg-selen-D3 2,000 unit-vit E tablet (RenaPlex-D) ipratropium 20 mcg-albuterol 100 g inhalation 10/27/21 10/27/21 mcg/actuation mist for inhalation (Combivent Respimat) methylprednisolone 4 mg tablets in ea PO 10/27/21 10/27/21 a dose pack temazepam 15 mg capsule mg PO 10/27/21 10/27/21 temazepam 30 mg capsule 30 mg PO ONCE 10/27/21 10/27/21 Previous Rx's Medication Instructions Recorded metoprolol succinate 25 mg 25 mg PO DAILY #90 tabs 02/26/20 tablet,extended release 24 hr apixaban 5 mg tablet (Eliquis) 5 mg PO Q12H #60 tabs 09/10/22 diltiazem HCl 120 mg 120 mg PO DAILY #30 caps 09/10/22 capsule,extended release 24 hr (Cardizem CD) Allergies Allergy/AdvReac Type Severity Reaction Status Date / Time No Known Allergies Allergy Verified 11/15/23 03:15 PFSH ED 2 PFSH: Medical History Atrial flutter Social History Smoking and tobacco/nicotine status: never used tobacco/nicotine Physical Exam 2 Const: GENERAL APPEARANCE: cooperative, ill appearing and frail appearing N UTRITIONAL APPEARANCE: thin HENMT: COMMON NORMALS: normocephalic and atraumatic HEAD & SCALP: n ormocephalic and atraumatic FACE & SINUS: face symmetric Eye: COMMON NORMALS: Equal, round and reactive pupils present and EOMs intact bilaterally SCLERA: scleral abnormal Laterality of scleral abnormality: positive bilateral scleral icterus PUPIL: Yes Equal, round and reactive pupils present Neck/C-Spine: GENERAL: Yes trachea midline Resp: COMMON NORMALS: No use of accessory muscles and clear to auscultation bilaterally AUSCULTATION: clear to auscultation bilaterally Cardio: COMMON NORMALS: regular rate and regular rhythm RATE: regular rate RHYTHM: regular rhythm GI: COMMON NORMALS: Soft to palpation PALPATION: Yes Soft to palpation and Yes Tenderness to palpation present (GI) Details: LLQ and LUQ Skin: GENERAL SKIN EXAM: jaundice Course 2 Vital Signs: Vital signs: Vital Signs Temperature 98.2 F 11/15/23 05:20 Pulse Rate 74 11/15/23 06:10 Respiratory Rate 22 H 11/15/23 06:10 Blood Pressure 97/50 11/15/23 06:10 Pulse Oximetry 100 11/15/23 06:10 Oxygen Delivery Me thod Nasal Cannula 11/15/23 05:20 Oxygen Flow Rate 2 11/15/23 05:20 MDM - GI Bleed Medical Decision Making Systolic blood pressures in the upper 70s on arrival. Currently 90/50. He was given a liter of fluid total. This is concerning, as the patient does have end- stage renal disease. A unit of trauma blood was cleared for him on his arrival. He is getting transfused now. 2 more units are being crossmatched. His hemoglobin is 5.8. White blood cell count is 13.5. Lactic acid is 2. INR is 1.27. Again the patient is not on anticoagulants. AST and ALT are normal. Spoke with [facility] for transfer. We do not have GI availability at this facility. Patient is given 80 of Protonix, and octreotide as well. Lead Business Systems Analyst requests desmopressin, and 1 g of calcium which are ordered. She also requests 2 units of FFP if they can be given after 3 units of blood. Patient's current pressure is 88/44 saturation is 100% respiration 17 heart rate 72. [facility] has agreed to accept in transfer. We are clearing weather for air transport for critical life threat transport. They will have GI aware of the patient on his arrival. Lab Data 11/15/23 03:15 11/15/23 03:15 Radiology Impressions Abdomen/Pelvis CT 11/15/23 03:20 IMPRESSION: 1. Innumerable bilateral renal cysts, largest is 14 mm. 2. No contrast extravasation to indicate active hemorrhage. 3. There is a moderate amount of nonspecific free fluid in the abdomen. 4. Stable lower lobe bronchiectasis. 5. There is nonspecific hepatomegaly. COMMENTS: Consistent with the [place] [employer]'s Incidental Findings Committee white paper (J Am Kayode Radiol 2018): Any incidental renal lesion less than 1 cm or classified as too small to characterize, or any incidental cystic renal lesion characterized as simple-appearing, is likely benign. No follow-up imaging is recommended for these lesions per consensus recommendations based on imaging criteria. Laboratory Results WBC 13.47 10^3/uL (3.29-11.43) H 11/15/23 03:15 RBC 1.73 10^6/uL (3.85-5.65) L 11/15/23 03:15 Hgb 5.80 g/dL (11.27-16.99) L* 11/15/23 03:15 Hct 19.2 % (37-53) L* 11/15/23 03:15 MCV 111.0 fl (82-101) H 11/15/23 03:15 MCH 33.5 pg (27-33) H 11/15/23 03:15 MCHC 30.2 g/dL (30-55) 11/15/23 03:15 RDW 17.4 % (12.1-15.1) H 11/15/23 03:15 Plt Count 412 10^3/cmm (157-399) H 11/15/23 03:15 MPV 9.3 fL (7.4-10.4) 11/15/23 03:15 Neut % (Auto) 68.8 % 11/15/23 03:15 Lymph % (Auto) 13.3 % 11/15/23 03:15 [place] % (Auto) 9.1 % 11/15/23 03:15 Eos % (Auto) 7.4 % 11/15/23 03:15 Baso % (Auto) 0.9 % 11/15/23 03:15 Neut # (Auto) 9.26 10^3/uL (1.8-7.7) H 11/15/23 03:15 Lymph # (Auto) 1.8 10^3/uL (0.8-4.8) 11/15/23 03:15 [place] # (Auto) 1.2 10^3/uL (0.2-0.9) H 11/15/23 03:15 Eos # (Auto) 1.0 10^3/uL (0.0-0.8) H 11/15/23 03:15 Baso # (Auto) 0.1 10^3/uL (0.0-0.1) 11/15/23 03:15 Nucleated RBC % (auto) 0 % 11/15/23 03:15 Nucleated RBCs # 0.0 /100WBC 11/15/23 03:15 PT 16.30 SECONDS (12.1-14.9) H 11/15/23 03:15 INR 1.27 (0.8-1.2) H 11/15/23 03:15 APTT 33.0 SECONDS (23.9-36.7) 11/15/23 03:15 Sodium 138 mmol/L (136-145) 11/15/23 03:15 Potassium 5.3 mmol/L (3.5-5.1) H 11/15/23 03:15 Chloride 92 mmol/L (98-107) L 11/15/23 03:15 Carbon Dioxide 29 mmol/L (22-29) 11/15/23 03:15 Anion Gap 22.3 (5-19) H 11/15/23 03:15 BUN 29 mg/dL (6-20) H 11/15/23 03:15 Creatinine 8.1 mg/dL (0.7-1.2) H* 11/15/23 03:15 GFR Calculation 7.6 mL/min (90-130) L 11/15/23 03:15 Glucose 93 mg/dL (65-115) 11/15/23 03:15 Calculated Osmolality 292 mOsm/kg (285-295) 11/15/23 03:15 Lactic Acid 2.0 mmol/L (0.5-2.2) 11/15/23 03:15 Calcium 7.8 mg/dL (8.5-10.5) L 11/15/23 03:15 Total Bilirubin 1.7 mg/dL (0.15-1.2) H 11/15/23 03:15 AST 34 U/L (0-40) 11/15/23 03:15 ALT 7 U/L (0-41) 11/15/23 03:15 Alkaline Phosphatase 127 U/L (40-130) 11/15/23 03:15 C-Reactive Protein 14.4 mg/L (0.0-4.9) H 11/15/23 03:15 Total Protein 6.3 g/dL (6.6-8.7) L 11/15/23 03:15 Albumin 3.0 g/dL (3.5-5.2) L 11/15/23 03:15 Globulin 3.3 g/dL (1.3-4.6) 11/15/23 03:15 Lipase 112 U/L (13-60) H 11/15/23 03:15 Ethyl Alcohol < 10 mg/dL (0-10) 11/15/23 03:15 Blood Type A Positive 11/15/23 03:31 Rho(D) Type Rh positive 11/15/23 03:31 Antibody Screen Negative 11/15/23 03:31 Crossmatch See Detail 11/15/23 03:31 All radiology interpretation(s) finalized by discharge Critical Care Time 2 Critical Care Time: Critical Care Time: Yes Total Critical Care Time: 50 Attestation: This case had a high probability of a clinically significant, sudden, or life threatening deterioration of this patient's condition which required my full and direct attention, intervention and personal management. Time is independent of any procedures performed. Discharge Plan Discharge Patient Disposition: Xfer Short-Term Hosp Clinical Impression: Gastrointestinal hemorrhage Condition: Critical Referrals: Radha Hadley FNP [Primary Care Provider] - Coding Level of Care Code ED Director Of Engineering for Chg Mai
[2023-11-15 04:04] LABS: Anion Gap 22.3 (5-19); Chloride 92 mmol/L (98-107); Potassium 5.3 mmol/L (3.5-5.1); Sodium 138 mmol/L (136-145)
[2023-11-15 04:07] LABS: Alcohol Level < 10 mg/dL (0-10); Osmolality Calculated 292 mOsm/kg (285-295)
[2023-11-15] MEDS: iohexol 350 mg/mL 500 mL Btl (per mL) IV (04:20)
[2023-11-15] MEDS: sodium chloride 0.9% 1,000 ML 999 ML IV (04:48)
[2023-11-15] MEDS: calcium gluconate 0.1 gm/mL 10% SDV 10mL 1 GM IVP (04:48)
[2023-11-15] MEDS: octreotide 100 mcg/mL SDV 50 MCG IVP (05:04)
[2023-11-15] MEDS: pantoprazole 40 mg SDV 80 MG IVP (05:10)
[2023-11-15] MEDS: sodium chloride 0.9% 100 mL Bag 50 ML IV ×2 (05:14)
== END 2023-11-15 06:11 | disposition short-term general hospital (02) ==
PROVIDERS: Emergency Provider Emergency Medicine; PCP Nurse Practitioner
DX: K92.2 Gastrointestinal hemorrhage, unspecified (principal)
CPT/HCPCS: 36430; 74177; 80053; 80307; 83605; 83690; 85025; 85610; 85730; 86140; 86850; 86900; 86920; 86927; 93005; 96365; 96375; 99285; J0612; J2354; J2470; J2543; J7030; P9016; P9017; P9040